=== PATIENT | male | born 1960 | race Caucasian/White ===

== ENCOUNTER 2024-06-06 11:06 | Emergency (ER) | payer SELFPAY ==
[2024-06-06] MEDS: fentaNYL 100 MCG/2 ML SDV IVPUSH ONE (11:08)
[2024-06-06] MEDS ORDERED: Sodium Chloride 0.9% 10 ML Syringe FLUSH PRN (11:10)
[2024-06-06] MEDS: Ketorolac 30 MG/ML SDV IVPUSH ONE (11:24)
[2024-06-06 11:27] LABS: HEMATOCRIT 38.7 % (40.0-54.0); HEMOGLOBIN 13.6 g/dL (13.0-18.0); MEAN CORPUSCULAR HEMOGLOBIN 31.4 pg (27.0-32.0); MEAN CORPUSCULAR HGB CONC 35.1 g/dL (31.0-35.0); MEAN PLATELET VOLUME 8.9 fL (6.0-10.0); RED BLOOD CELL COUNT 4.33 M/uL (4.50-6.50); RED CELL DISTRIBUTION WIDTH 11.9 % (11.0-16.0); WHITE BLOOD CELL COUNT,WBC 19.7 K/uL (4.0-11.0)
[2024-06-06] MEDS: HYDROmorphone 2 MG/ML Syringe IVPUSH ONE ×3 (11:36→12:48)
[2024-06-06 11:50] LABS: A/G RATIO 1.3 (0.8-2.0); ALBUMIN 3.5 g/dL (3.4-5.0); ANION GAP 17.5 mmol/L (5.0-15.0); BILIRUBIN TOTAL 0.7 mg/dL (0.0-1.0); CALCIUM 8.5 mg/dL (8.5-10.1); CARBON DIOXIDE,CO2 21.6 mmol/L (21.0-32.0); CREATININE 1.08 mg/dL (0.70-1.30); EST CRCL DRUG DOSING (CG) 68.61 mL/min; POTASSIUM,K 3.1 mmol/L (3.5-5.1); PROTEIN TOTAL,TP 6.1 g/dL (6.4-8.2)
[2024-06-06] MEDS: Iopamidol 612 MG/ML 100 ML Bottle IV PRN (12:11)
[2024-06-06] MEDS: Sodium Chloride 0.9% 50 ML SDV FLUSH SCH (12:11)
[2024-06-06] MEDS ORDERED: HYDROmorphone 2 MG/ML Syringe IVPUSH SCH (12:48)
[2024-06-06] MEDS: HYDROmorphone 2 MG/ML Syringe ONE (12:51)
[2024-06-06] MEDS: Ondansetron 4 MG/2 ML SDV ONE (12:51)
== END 2024-06-06 12:48 ==
LOC: LB.ED 11:06
DX: S32.491A Other specified fracture of right acetabulum, initial encounter for closed fracture (principal); S32.301A Unspecified fracture of right ilium, initial encounter for closed fracture; S39.93XA Unspecified injury of pelvis, initial encounter; W17.89XA Other fall from one level to another, initial encounter
CPT/HCPCS: 36415; 51702; 70450; 71260; 72125; 72128; 72131; 72170; 74177; 80053; 80307; 85027; 96374; 96375; 96376; 99285; A0425; A0429; J1170; J1885; J3010; J3490; Q9967